=== PATIENT | female | born 1955 | race Hispanic/Latino ===

== ENCOUNTER 2021-09-09 05:57 | Observation (INO) | payer OTHER ==
[2021-09-03 11:09] LABS: BASOPHILS % (AUTO) 1.1 % (0.0-5.0); EOSINOPHILS % (AUTO) 12.1 % (0.0-8.0); LYMPHOCYTES % (AUTO) 23.3 % (21.0-51.0); MEAN CORPUSCULAR HEMOGLOBIN 26.1 pg (27.0-33.0); MEAN CORPUSCULAR VOLUME 81.5 fL (79-99); MONOCYTES % (AUTO) 6.4 % (3.0-13.0); NEUTROPHILS % (AUTO) 56.9 % (40.0-77.0); PLATELET COUNT (AUTO) 239 K/uL (130-400); RED CELL DISTRIBUTION WIDTH 14.6 % (11.0-15.5); WHITE BLOOD COUNT (AUTO) 6.4 K/uL (4.8-10.8)
[2021-09-08 11:37] VITALS: BP 149/55
[~2021-09-09] VITALS: Ht 152.4 cm; Wt 92.2 kg
[2021-09-09] VITALS (24 sets, daily range): BP systolic 91–157; BP diastolic 40–83
[~2021-09-09 05:57] MED LIST: ALBUTEROL IH; ASPI-1005 PO; L.AC1CAP6 PO; LISI20TA24 PO; MV-M1TAB20 PO
[2021-09-09] MEDS ORDERED: CEFAZOLIN SODIUM 1 GM VIAL ONE (06:44)
[2021-09-09] MEDS ORDERED: VASOPRESSIN 20 UNITS/ML 1ML VIAL ONE (07:06)
[2021-09-09 07:31] LABS: CREATININE 0.7 mg/dL (0.5-1.5); POTASSIUM 4.1 mmol/L (3.5-5.1)
[2021-09-09] MEDS ORDERED: SUCCINYLCHOLINE CHLORIDE 20 MG/ML 10 ML VIAL ONE (07:45)
[2021-09-09] MEDS ORDERED: ROCURONIUM 10MG/1ML SYR 10 MG/ML ML ONE (07:45)
[2021-09-09] MEDS ORDERED: PROPOFOL 10 MG/ML 20ML VIAL IV ONE ×2 (07:45→09:15)
[2021-09-09] MEDS ORDERED: LIDOCAINE PF 100MG/5ML (2%) SYRINGE 5ML ONE (07:45)
[2021-09-09] MEDS ORDERED: FENTANYL CITRATE PF 50 MCG/1 ML 2ML VIAL ONE (07:45)
[2021-09-09] MEDS ORDERED: MIDAZOLAM HCL 1 MG/ML 2ML VIAL ONE (07:45)
[2021-09-09] MEDS ORDERED: LACTATED RINGERS 1000ML 1,000 ML IV SCH (08:00)
[2021-09-09] MEDS ORDERED: CEFAZOLIN SODIUM 1 GM VIAL IVP ONE (08:00)
[2021-09-09] MEDS ORDERED: EPHEDRINE SULFATE 50 MG/ML AMPULE ONE (08:17)
[2021-09-09] MEDS ORDERED: ESTROGENS,CONJUGATED 0.625 MG/GM 42.5 GM VAG CRM VG ONE (09:19)
[2021-09-09] MEDS ORDERED: NEOSTIGMINE 5MG/5ML SYR IV ONE (09:30)
[2021-09-09] MEDS ORDERED: GLYCOPYRROLATE 1 MG/5 ML SYRINGE ONE (09:30)
[2021-09-09] MEDS: 0.9%NACL 1000ML 1,000 ML IV ONE ×2 (10:00→10:01)
[2021-09-09] MEDS ORDERED: BISACODYL 10 MG SUPP.RECT RC PRN (10:30)
[2021-09-09] MEDS ORDERED: PROMETHAZINE HCL 25 MG/ML 1ML AMPULE IM PRN (10:30)
[2021-09-09] MEDS ORDERED: IBUPROFEN 600 MG TABLET PO PRN (10:30)
[2021-09-09] MEDS ORDERED: ALBUTEROL INHALER 90MCG/INH IH PRN (10:30)
[2021-09-09] MEDS ORDERED: ONDANSETRON 4MG INJ IVP PRN (10:30)
[2021-09-09] MEDS ORDERED: ACETAMINOPHEN WITH CODEINE 1 TAB TAB PO PRN (10:30)
[2021-09-09] MEDS ORDERED: MEPERIDINE-PF 25 MG/ML SYG ONE (10:36)
[2021-09-09] MEDS: DEXTROSE 5 %-0.45 % NACL 1,000 ML IV PRN ×2 (11:23→18:35)
[2021-09-09] MEDS: PROMETHAZINE HCL 25 MG/ML 1ML AMPULE IM PRN ×3 (11:23→23:59)
[2021-09-09] MEDS: MEPERIDINE-PF 75 MG/ML SYG IM PRN ×2 (11:24→15:09)
[2021-09-10] MEDS: MEPERIDINE-PF 75 MG/ML SYG IM PRN
[2021-09-10] MEDS: DEXTROSE 5 %-0.45 % NACL 1,000 ML IV PRN (02:34)
[2021-09-10 03:20] VITALS: BP 120/65
[2021-09-10 06:24] LABS: HEMATOCRIT 36.6 % (36-48); MEAN CORPUSCULAR HEMOGLOBIN 26.1 pg (27.0-33.0); MEAN CORPUSCULAR HGB CONC 31.1 g/dL (32.0-36.0); MEAN CORPUSCULAR VOLUME 83.9 fL (79-99); RED BLOOD CELL COUNT(AUTO) 4.36 MIL/uL (4.00-5.50); RED CELL DISTRIBUTION WIDTH 14.8 % (11.0-15.5); WHITE BLOOD COUNT (AUTO) 12.1 K/uL (4.8-10.8)
[2021-09-10 07:22] VITALS: BP 120/55
[2021-09-10] MEDS: LISINOPRIL 20 MG TABLET PO SCH (09:00)
[2021-09-10] MEDS: DOCUSATE SODIUM 100 MG CAP PO PRN (09:27)
[2021-09-10] MEDS: SIMETHICONE 80 MG TAB.CHEW PO PRN (09:27)
[2021-09-10] MEDS: IBUPROFEN 100 MG/5 ML SUSP UDCUP PO PRN ×2 (09:28→19:22)
[2021-09-10] MEDS ORDERED: LORATADINE 10 MG TABLET PO PRN (10:00)
[2021-09-10 11:11] VITALS: BP 99/56
[2021-09-10 16:24] VITALS: BP 106/57
[2021-09-10 19:40] VITALS: BP 128/65
[2021-09-10 23:32] VITALS: BP 102/41
[2021-09-11 03:49] VITALS: BP 118/71
[2021-09-11] MEDS: IBUPROFEN 100 MG/5 ML SUSP UDCUP PO PRN ×2 (05:48→13:34)
[2021-09-11 07:23] VITALS: BP 115/61
[2021-09-11] MEDS: SIMETHICONE 80 MG TAB.CHEW PO PRN (08:59)
[2021-09-11] MEDS: DOCUSATE SODIUM 100 MG CAP PO PRN (08:59)
[2021-09-11] MEDS: LISINOPRIL 20 MG TABLET PO SCH (08:59)
[2021-09-11 11:14] VITALS: BP 114/63
== END 2021-09-11 15:15 | disposition home or self-care (01) ==
LOC: DAH 05:57 → DAHIP 05:58 → EDSTATUS 10:00 → WSH 11:05
PROVIDERS: ADMIT Specialist; ATTEND Specialist
DX: N81.4 Uterovaginal prolapse, unspecified (principal); Z20.822 Contact with and (suspected) exposure to COVID-19; N39.3 Stress incontinence (female) (male); R68.89 Other general symptoms and signs; I10 Essential (primary) hypertension; Z79.899 Other long term (current) drug therapy
CPT/HCPCS: 36415 ×3; 57260; 58260; 80048; 82948 ×2; 85025; 85027; 86850 ×2; 86900 ×2; 86901 ×2; 87635; 96372 ×2; 96374; A4215; A4221; A4222; A4223 ×2; A4344; A4351; A4510; A4600; A4663; A6260; G0378 ×23; J0330; J0690; J2001; J2175 ×4; J2250; J2405; J2550 ×3; J2704 ×2; J2710; J3010; J3490 ×3; J7030

== ENCOUNTER 2021-11-28 20:28 | Emergency (ER) | payer OTHER ==
[~2021-11-28] VITALS: Ht 152.4 cm; Wt 89.4 kg
[2021-11-28 22:34] LABS: APPEARANCE,URINE CLEAR (CLEAR); BILIRUBIN,URINE NEGATIVE (NEGATIVE); GLUCOSE, URINE (UA) NEGATIVE (NEGATIVE); KETONES,URINE NEGATIVE (NEGATIVE); LEUKOCYTE ESTERASE ,URINE NEGATIVE (NEGATIVE); NITRATE,URINE NEGATIVE (NEGATIVE); OCCULT BLOOD,URINE NEGATIVE (NEGATIVE); PROTEIN,URINE NEGATIVE (NEGATIVE); UROBILINOGEN,URINE 0.2 mg/dL (0.2-1.0)
[2021-11-28 23:03] LABS: COLOR,URINE Straw (YELLOW)
[2021-11-28] MEDS ORDERED: KETOROLAC 15MG/ML VIAL (15MG/ML) IV ONE (23:30)
[2021-11-28] MEDS ORDERED: 0.9%NACL 1000ML 1,000 ML IV ONE (23:30)
[2021-11-28] MEDS ORDERED: ACET-66 PO (23:57)
[2021-11-29 00:09] VITALS: BP 147/68
== END 2021-11-29 00:15 | disposition home or self-care (01) ==
LOC: EDH 20:28
DX: S39.011A Strain of muscle, fascia and tendon of abdomen, initial encounter (principal); S39.012A Strain of muscle, fascia and tendon of lower back, initial encounter; R51.9 Headache, unspecified; I10 Essential (primary) hypertension; E86.0 Dehydration; Z79.899 Other long term (current) drug therapy; Z79.82 Long term (current) use of aspirin; X58.XXXA Exposure to other specified factors, initial encounter; Y93.89 Activity, other specified; Y92.89 Other specified places as the place of occurrence of the external cause; Y99.8 Other external cause status
CPT/HCPCS: 81003; 96361; 96374; 99283; J1885; J7030

== ENCOUNTER 2023-06-01 05:39 | Observation (INO) | payer OTHER ==
[2023-05-30 11:20] VITALS: BP 150/59; PULSE 66; RESP 18
[2023-05-30 11:45] LABS: APPEARANCE,URINE CLEAR (CLEAR); BILIRUBIN,URINE NEGATIVE (NEGATIVE); COLOR,URINE COLORLESS (YELLOW); GLUCOSE, URINE (UA) NEGATIVE (NEGATIVE); KETONES,URINE NEGATIVE (NEGATIVE); LEUKOCYTE ESTERASE ,URINE NEGATIVE Leu/uL (NEGATIVE); NITRATE,URINE NEGATIVE (NEGATIVE); OCCULT BLOOD,URINE NEGATIVE (NEGATIVE); PROTEIN,URINE NEGATIVE (NEGATIVE); UROBILINOGEN,URINE 0.2 mg/dL (0.2-1.0)
[2023-05-30 11:58] LABS: ADD UA MICROSCOPIC NO
[2023-06-01] VITALS (27 sets, daily range): BP systolic 90–138; BP diastolic 44–84; PULSE 69–113; RESP 15–19; O2SAT 92–95
[~2023-06-01] VITALS: Ht 152.4 cm; Wt 81.3 kg
[~2023-06-01 05:39] MED LIST changes: +ACET-66 PO; -ASPI-1005 PO; +ATOR10TA69 PO; +CETI10CA5 PO; +FLUT16H NASAL; +HC2530O TP; -L.AC1CAP6 PO; -LISI20TA24 PO; +LISI40TA9 PO; -MV-M1TAB20 PO; +TYLENOL ARTHRITIS PO
[2023-06-01] MEDS ORDERED: CEFAZOLIN SODIUM 2 GM VIAL ONE (06:25)
[2023-06-01] MEDS ORDERED: LACTATED RINGERS 1000ML 1,000 ML IV ONE (06:25)
[2023-06-01] MEDS ORDERED: BUPIVACAINE/PF 0.5% 30ML VIAL ONE (06:36)
[2023-06-01] MEDS ORDERED: KETOROLAC 30MG VIAL (30MG/ML) ONE (06:36)
[2023-06-01] MEDS ORDERED: LIDOCAINE PF 100MG/5ML (2%) SYRINGE 5ML ONE ×2 (06:47→06:52)
[2023-06-01] MEDS ORDERED: SUCCINYLCHOLINE CHLORIDE 20 MG/ML 10 ML VIAL ONE (06:47)
[2023-06-01] MEDS ORDERED: DEXAMETHASONE SOD PHOSPHATE 10MG/ML 1ML VIAL ONE (06:47)
[2023-06-01] MEDS ORDERED: MIDAZOLAM HCL 1 MG/ML 2ML VIAL ONE (06:48)
[2023-06-01] MEDS ORDERED: FENTANYL CITRATE PF 50 MCG/1 ML 2ML VIAL ONE ×2 (06:48→08:16)
[2023-06-01] MEDS ORDERED: ONDANSETRON 4MG INJ ONE (06:48)
[2023-06-01] MEDS ORDERED: PROPOFOL 10 MG/ML 20ML VIAL IV ONE (06:48)
[2023-06-01] MEDS ORDERED: ROCURONIUM 10MG/1ML SYR 10 MG/ML ML ONE (06:48)
[2023-06-01] MEDS ORDERED: ROPIVACAINE 0.5% 5MG/ML 30ML IJ ONE (06:52)
[2023-06-01] MEDS ORDERED: LIDOCAINE HCL 1% 20 ML VIAL ONE (06:56)
[2023-06-01] MEDS ORDERED: TRANEXAMIC ACID 1000MG/10ML ONE ×2 (07:08→09:07)
[2023-06-01] MEDS ORDERED: EPHEDRINE SULFATE 50 MG/ML AMPULE ONE (07:34)
[2023-06-01] MEDS ORDERED: PHENYLEPHRINE HCL 10 MG/ML 1ML VIAL IV ONE (07:49)
[2023-06-01] MEDS ORDERED: CEFAZOLIN SODIUM 2 GM VIAL IVPB ONE (07:50)
[2023-06-01] MEDS ORDERED: GLYCOPYRROLATE 1 MG/5 ML SYRINGE ONE (07:53)
[2023-06-01] MEDS ORDERED: KETOROLAC 30MG VIAL (30MG/ML) IJ ONE (08:09)
[2023-06-01] MEDS ORDERED: BUPIVACAINE/PF 0.5% 30ML VIAL INJ ONE (08:09)
[2023-06-01] MEDS ORDERED: NEOSTIGMINE 5MG/5ML SYR IV ONE (09:13)
[2023-06-01] MEDS ORDERED: TRANEXAMIC ACID 1000MG/10ML IV ONE (09:15)
[2023-06-01] MEDS ORDERED: TRAMADOL HCL 50 MG TABLET PO PRN (09:30)
[2023-06-01] MEDS ORDERED: POTASSIUM CHLORIDE 10% ELIXIR 20 MEQ/15 ML UDCUP PO PRN (09:30)
[2023-06-01] MEDS ORDERED: KCL 20 MEQ ERTAB PO PRN (09:30)
[2023-06-01] MEDS ORDERED: ONDANSETRON 4MG INJ IVP PRN (09:30)
[2023-06-01] MEDS ORDERED: FERROUS FUMARATE 324 MG TABLET PO PRN (09:30)
[2023-06-01] MEDS ORDERED: DiphenhydrAMINE HCL 50 MG/ML VIAL IVP PRN (09:30)
[2023-06-01] MEDS ORDERED: CYCLOBENZAPRINE HCL 10 MG TABLET PO PRN (09:30)
[2023-06-01] MEDS ORDERED: CALCIUM CARB 500MG PO PRN (09:30)
[2023-06-01] MEDS ORDERED: POTASSIUM CHLORIDE 20MEQ/100ML 100 ML IV PRN (09:30)
[2023-06-01] MEDS ORDERED: MEPERIDINE-PF 25 MG/ML SYG ONE (09:44)
[2023-06-01] MEDS ORDERED: KETOROLAC 15MG/ML VIAL (15MG/ML) ONE (10:39)
[2023-06-01] MEDS: KETOROLAC 15MG/ML VIAL (15MG/ML) IV SCH ×2 (10:50→18:17)
[2023-06-01] MEDS: HYDROCODONE/ACETAMINOPHEN 5/325 MG TAB PO PRN (13:55)
[2023-06-01] MEDS: GABAPENTIN 100 MG CAPSULE PO SCH ×2 (14:50→20:59)
[2023-06-01] MEDS: CEFAZOLIN SODIUM 2 GM VIAL IVPB SCH (16:55)
[2023-06-01] MEDS: 0.9%NACL 1000ML 1,000 ML IV SCH ×2 (16:56→20:59)
[2023-06-01] MEDS ORDERED: FLUTICASONE PROPIONATE 50MCG/SPRAY 16 GM BOTTLE EN PRN ×2 (19:00→19:30)
[2023-06-01] MEDS ORDERED: NON-FORMULARY MEDICATION 1 EACH (Cetirizine HCl (Zyrtec) 10 MG) PO SCH (19:00)
[2023-06-01] MEDS ORDERED: HYDROCORTISONE TP SCH (19:00)
[2023-06-01] MEDS ORDERED: ALBUTEROL IH PRN (19:00)
[2023-06-01] MEDS ORDERED: APPL TP SCH (19:00)
[2023-06-01] MEDS ORDERED: ALBUTEROL 0.083% 2.5 MG/3 ML INH IH PRN (19:30)
[2023-06-01] MEDS: DOCUSATE SODIUM 100 MG CAP PO SCH (20:59)
[2023-06-01] MEDS: ATORVASTATIN 10 MG TABLET PO SCH (20:59)
[2023-06-02] VITALS (7 sets, daily range): BP systolic 96–117; BP diastolic 49–57; PULSE 64–81; RESP 16–18; O2SAT 95–96
[2023-06-02] MEDS ORDERED: CEFAZOLIN SODIUM 2 GM VIAL ONE (00:27)
[2023-06-02] MEDS: KETOROLAC 15MG/ML VIAL (15MG/ML) IV SCH (00:38)
[2023-06-02] MEDS: CEFAZOLIN SODIUM 2 GM VIAL IVPB SCH (00:38)
[2023-06-02 04:45] LABS: HEMATOCRIT 32.2 % (36-48); MEAN CORPUSCULAR HEMOGLOBIN 26.4 pg (27.0-33.0); MEAN CORPUSCULAR VOLUME 82.6 fL (79-99); RED BLOOD CELL COUNT(AUTO) 3.9 MIL/uL (4.00-5.50); RED CELL DISTRIBUTION WIDTH 14.6 % (11.0-15.5); WHITE BLOOD COUNT (AUTO) 11.9 K/uL (4.8-10.8)
[2023-06-02 04:56] LABS: CREATININE 1.1 mg/dL (0.5-1.5); POTASSIUM 4.4 mmol/L (3.5-5.1)
[2023-06-02] MEDS: ASPIRIN 325MG EC TAB PO SCH (08:36)
[2023-06-02] MEDS: LISINOPRIL 40 MG TABLET PO SCH (08:36)
[2023-06-02] MEDS: POLYETHYLENE GLYCOL 3350 17 GM POWD.PACK PO SCH (08:36)
[2023-06-02] MEDS: GABAPENTIN 100 MG CAPSULE PO SCH ×3 (08:36→20:57)
[2023-06-02] MEDS: CETIRIZINE HCL 5 MG TABLET PO SCH (08:36)
[2023-06-02] MEDS: DOCUSATE SODIUM 100 MG CAP PO SCH ×2 (08:37→20:45)
[2023-06-02] MEDS ORDERED: KETOROLAC 15MG/ML VIAL (15MG/ML) IV PRN (09:30)
[2023-06-02] MEDS: HYDROCODONE/ACETAMINOPHEN 5/325 MG TAB PO PRN (10:35)
[2023-06-02] MEDS: ATORVASTATIN 10 MG TABLET PO SCH (20:45)
[2023-06-03] VITALS: BP 110/54; PULSE 76; RESP 16
[2023-06-03] MEDS: HYDROCODONE/ACETAMINOPHEN 5/325 MG TAB PO PRN ×2 (00:24→12:20)
[2023-06-03 04:00] VITALS: BP 93/59; PULSE 74; RESP 18
[2023-06-03 08:00] VITALS: BP 116/63; PULSE 70; RESP 17; O2SAT 95
[2023-06-03] MEDS: LISINOPRIL 40 MG TABLET PO SCH (08:23)
[2023-06-03] MEDS: POLYETHYLENE GLYCOL 3350 17 GM POWD.PACK PO SCH (09:08)
[2023-06-03] MEDS: ASPIRIN 325MG EC TAB PO SCH (09:08)
[2023-06-03] MEDS: CETIRIZINE HCL 5 MG TABLET PO SCH (09:08)
[2023-06-03] MEDS: DOCUSATE SODIUM 100 MG CAP PO SCH (09:08)
[2023-06-03] MEDS: GABAPENTIN 100 MG CAPSULE PO SCH ×2 (09:08→15:03)
[2023-06-03 10:16] VITALS: PULSE 74; RESP 18; O2SAT 98
[2023-06-03 11:34] VITALS: BP 131/60; PULSE 77; RESP 18
[2023-06-03] MEDS ORDERED: CYCL-309 PO (14:41)
[2023-06-03] MEDS ORDERED: HYDR-4060 PO (14:41)
[2023-06-03] MEDS ORDERED: ASPI-891 PO (14:41)
[2023-06-03] MEDS ORDERED: DOCU-116 PO (14:41)
[2023-06-03 15:34] VITALS: BP 91/45; PULSE 80; RESP 17
[2023-06-04] MEDS ORDERED: BISACODYL 10 MG SUPP.RECT RC PRN (09:30)
== END 2023-06-03 16:40 ==
LOC: DAH 05:39 → DAHIP 05:40 → EDSTATUS 10:19 → 4DH 11:00
PROVIDERS: ADMIT Student in an Organized Health Care Education/Training Program; ATTEND Student in an Organized Health Care Education/Training Program
DX: M17.12 Unilateral primary osteoarthritis, left knee (principal); D62 Acute posthemorrhagic anemia; I10 Essential (primary) hypertension; E78.5 Hyperlipidemia, unspecified; J45.909 Unspecified asthma, uncomplicated; E66.01 Morbid (severe) obesity due to excess calories; E11.9 Type 2 diabetes mellitus without complications; Z79.899 Other long term (current) drug therapy
CPT/HCPCS: 87088; 84134; 81003; 36415 ×3; 93005; 87641; 64447; 27447; 96376 ×2; 96365; 96375; 82948 ×10; 86140; 73560; 97161; 97116 ×4; 97530 ×10; 96366; 80048; 85027; 94664; G0378 ×50; A4663; J7030; J7120 ×2; A4215 ×2; J3010 ×2; J3490 ×5; J1100; J2710; J0330; J2001 ×2; J2250; J2704; J2405; J1885 ×5; J0665 ×2; J2175; J2795; J2371; J0690 ×4; C1713 ×2; G0168; A4649 ×3; C1776; A6255; A5120; A4223; A4222; A4221